=== PATIENT | female | born 1970 | race Caucasian/White ===

== ENCOUNTER → 2017-05-03 | Outpatient (CLI) | payer BC ==
--- NOTE | 2017-05-04 08:17 | US ---
EXAMINATION TYPE: US pelvis complete transvag DATE OF EXAM: 05/03/2017 COMPARISON: US 2016 CLINICAL HISTORY: R10.2 PELVIC PAIN. Abdomen and pelvic pain x couple weeks, 4, para 2, ectop ic 2, uterine ablation 2009, history of tubal ligation and reversal TECHNIQUE: . Transabdominal sonographic images of the pelvis were acquired. Transvaginal sonographi c images were medically necessary to better assess the following anatomy: ovaries Date of LMP: 2009 EXAM MEASUREMENTS: Uterus: 10.1 x 4.6 x 5.0 cm Endometrial Stripe: 0.4 cm Right Ovary: 2.7 x 1.6 x 1.6 cm Left Ovary: 2.6 x 1.9 x 1.6 cm 1. Uterus: anteverted, heterogeneous with 4.0 x 2.5 x 3.6cm hypoechoic lesion right mid uterus, prob able fibroid, nabothian cyst 2. Endometrium: wnl 3. Right Ovary: wnl 4. Left Ovary: wnl 5. Bilateral Adnexa: wnl 6. Posterior cul-de-sac: wnl IMPRESSION: Fibroid uterus
== END | disposition home or self-care (01) ==
LOC: RADUSWWP 15:25
PROVIDERS: ATTEND Family Medicine
DX: D25.9 Leiomyoma of uterus, unspecified (principal)
CPT/HCPCS: 76830; 76856

== ENCOUNTER → 2018-04-29 | Outpatient (CLI) | payer BC ==
--- NOTE | 2018-04-30 04:13 | CT ---
EXAMINATION TYPE: CT abdomen pelvis w con DATE OF EXAM: 04/29/2018 COMPARISON: Ultrasound 05/03/2017 HISTORY: 48-year-old female abdominal and pelvic pain. GENERALIZED ABDOMINAL PAIN TECHNIQUE: Contiguous axial scanning of the abdomen and pelvis following administration of 100 ml Iso claudia 300 IV contrast. Delayed images through the kidneys and coronal/sagittal reconstructions perform ed. CT DLP: 1544.3 mGycm Automated exposure control for dose reduction was used. FINDINGS: Heart normal size without pericardial effusion. Lung bases clear without pleural effusion. Liver mildly enlarged at 18.3 cm. No focal liver lesion. No biliary ductal dilatation. Portal venous system is patent. Gallbladder, adrenal glands, left kidney, spleen, and pancreas appear within normal limits. Punctate 3 mm nonobstructive right renal calculus. There is some fold thickening of the distal duodenum and proximal jejunum, refer to coronal image 33 and axial image 29. No dilated small bowel, free fluid, or free air. No mesenteric or retroperitoneal lymphadenopathy. Normal appendix. Oral contrast progressed to the lower descending colon. No pericolonic inflammatory change. No signif icant stool burden. Bladder is urine distended. Phleboliths in the left side of the pelvis. Uterus and both ovaries are visualized. There is a 4.6 cm oval fibroid from the posterior right uterine fundus which is primarily subserosal. Just adjacent, there is an additional partially intramural and partially subserosal fibroid measurin g 2.4 cm along the mid posterior uterine fundus. No abnormal fluid collection in the pelvis or pelvic lymphadenopathy. Bones: Mild degenerative changes at the hips. No osseous destructive process. IMPRESSION: 1. SOME FOLD THICKENING ALONG THE DISTAL DUODENUM AND PROXIMAL JEJUNUM COULD REPRESENT A NONSPECIFIC MILD REGIONAL ENTERITIS. CLINICALLY CORRELATION. 2. FIBROID UTERUS WITH A DOMINANT 4.6 CM FOCAL FIBROID RIGHT POSTERIOR UTERINE FUNDUS, PRIMARILY SUBS EROSAL (VERSUS 4.0 CM ON 05/03/2017 ULTRASOUND). FEMALE PELVIC MRI CAN BE PERFORMED IF FIBROID MAPPING IS DESIRED. 3. PUNCTATE 3 MM NONOBSTRUCTIVE RIGHT RENAL CALCULUS. 4. MILD HEPATOMEGALY (18.3 CM).
== END ==
LOC: RADCTMAIN 15:29
PROVIDERS: ATTEND Family Medicine
DX: K59.9 Functional intestinal disorder, unspecified (principal); N20.0 Calculus of kidney; D25.9 Leiomyoma of uterus, unspecified; R16.0 Hepatomegaly, not elsewhere classified
CPT/HCPCS: 74177; Q9967

== ENCOUNTER → 2019-01-25 | Outpatient (CLI) | payer BC ==
--- NOTE | 2019-01-27 09:58 | MM ---
Reason for exam: screening (asymptomatic). Last mammogram was performed 3 years and 4 months ago. History: Family history of breast cancer in grandmother. Took hormonal contraceptives for 8 years. Physical Findings: A clinical breast exam by your physician is recommended on an annual basis and results should be correlated with mammographic findings. MG 3D Screening Mammo W/Cad Bilateral CC and MLO view(s) were taken. Prior study comparison: September 28, 2015, bilateral MG screening mammo w CAD. November 06, 2013, bilateral MG screening mammo w CAD. The breast tissue is heterogeneously dense. This may lower the sensitivity of mammography. There is chronic nodularity bilaterally. There is no dominant lesion. No significant changes when compared with prior studies. ASSESSMENT: Benign, BI-RAD 2 RECOMMENDATION: Routine screening mammogram of both breasts in 1 year.
== END | disposition home or self-care (01) ==
LOC: RADMAMWWP 10:00
PROVIDERS: ATTEND Family Medicine
DX: Z12.39 Encounter for other screening for malignant neoplasm of breast (principal)
CPT/HCPCS: 77063; 77067

== ENCOUNTER 2019-10-09 19:50 | Emergency (ER) | payer BC ==
[2019-10-09 19:55] VITALS: BP 155/90; PULSE 50; RESP 20; TEMP 99
[2019-10-09] MEDS ORDERED: KETOROLAC 15 MG/ML 1 ML VIAL IM STA (20:04)
[2019-10-09] MEDS ORDERED: DIPH,PERTUS(ACELL)TETVAC-LF 0.5 ML VIAL IM ONE (20:04)
[2019-10-09] MEDS ORDERED: ACET/COD 300 MG/30 MG STARTER PACK 6 TAB BTL PO STA (20:04)
[2019-10-09] MEDS ORDERED: BACITRACIN OINT 1 EACH PACKET TOPICAL ONE (20:05)
[2019-10-09] MEDS ORDERED: LIDOCAINE 1% INJ 10MG/ML (20 ML MDV) SQ ONE (20:05)
--- NOTE | 2019-10-09 20:16 | ED ---
Animal Bite HPI - General Chief Complaint: Animal Bite Stated Complaint: Animal Bite Time Seen by Provider: 10/09/19 19:56 Source: patient Mode of arrival: ambulatory Limitations: no limitations - History of Present Illness Initial Comments: 49-year-old female patient presents to the emergency department today for evaluation of dog bite. Patient states that she was playing with puppy's when her older male dog became upset and attacked her. She states that she sustained multiple injuries to the bilateral hands. She is reporting hand pain. Denies n umbness or tingling. Denies any other injuries. She is unsure when her last tetanus vaccine was given. States the dog is up-to-date on his immunizations including rabies. She does admit to drinking alcohol today. Patient denies any headache, neck pain, back pain, chest pain, shortness of breath, dizziness, weakness, abdominal pain, nausea, vomiting, or difficulties with bowel movements or urination. - Related Data Home Medications Medication Instructions Recorded Confirmed Hydrocodone/Acetaminophen [Vicodin 1 each PO Q6HR PRN 02/24/14 02/24/14 5-300 mg Tablet] Previous Rx's Medication Instructions Recorded Acetaminophen-Codeine 300-30mg 1 tab PO Q4H PRN #20 tablet 02/24/14 [Tylenol w/codeine #3] Penicillin V Potassium [Pen Vee K] 500 mg PO TID #40 tab 02/24/14 Amoxic-Pot Clav 875-125Mg 1 tab PO Q12HR #14 tablet 10/09/19 [Augmentin 875-125] Allergies Allergy/AdvReac Type Severity Reaction Status Date / Time No Known Allergies Allergy Verified 10/09/19 19:55 Review of Systems ROS Statement: Those systems with pertinent positive or pertinent negative responses have been documented in the HPI. ROS Other: All systems not noted in ROS Statement are negative. Past Medical History Past Medical History: No Reported History History of Any Multi-Drug Resistant Organisms: None Reported Past Surgical History: Tubal Ligation Past Psychological History: Anxiety, Depression Smoking Status: Former smoker Past Alcohol Use History: Rare Past Drug Use History: Marijuana General Exam Limitations: no limitations General appearance: alert, in no apparent distress, other (This is a well- developed, well-nourished adult female patient in no acute distress. Vital signs upon presentation are temperature 99.0F, pulse 50, respirations 20, blood pressure 155/90, pulse ox 98% on room air.) Respiratory exam: Present: normal lung sounds bilaterally. Absent: respiratory distress, wheezes, rales, rhonchi, stridor Cardiovascular Exam: Present: regular rate, normal rhythm, normal heart sounds. Absent: systolic murmur, diastolic murmur, rubs, gallop, clicks Extremities exam: Present: full ROM, normal capillary refill, other (There are 2 punctures and a small superficial abrasion over the dorsal aspect of the right wrist. 2 punctures over the dorsal right hand. There is a 2 cm laceration noted to the webbing between the middle and ring fingers on the right hand. There is a 3 cm laceration at the base of the left thumb. 3 cm laceration noted over the right MCP joint dorsally. 2 cm laceration over the palmar aspect of the left thumb over the proximal phalanx. There is one puncture noted over the dorsal left hand. Skin is otherwise pink, warm, dry. Cap refills less than 3 seconds. Radial pulses 2+ and equal bilaterally.). Absent: normal inspection, tenderness, pedal edema, joint swelling, calf tenderness Neurological exam: Present: alert, oriented X3, CN II-XII intact Psychiatric exam: Present: normal affect, normal mood Skin exam: Present: warm, dry, intact, normal color. Absent: rash Course Vital Signs 10/09/19 19:51 Temperature 99 F Pulse Rate 50 L Respiratory 20 Rate Blood Pressure 155/90 O2 Sat by Pulse 98 Oximetry Procedures - Laceration Laceration #1 Consent Obtained: verbal consent Indication: laceration (Dog bite) Site: hand (base of left thumb near wrist) Size (cm): 3 Description: linear Depth: simple, single layer Anesthetic Used: lidocaine 1% Anesthesia Technique: local infiltration Amount (mls): 3 Pre-repair: irrigated extensively Type of Sutures: nylon Size of Sutures: 4-0 Number of Sutures: 2 (Loosely approximated) Technique: simple, interrupted Patient Tolerated Procedure: well, no complications Laceration #2 Consent Obtained: verbal consent Indication: laceration Site: hand Size (cm): 3 Description: linear Depth: simple, single layer Anesthetic Used: lidocaine 1% Anesthesia Technique: local infiltration Amount (mls): 3 Pre-repair: irrigated extensively Type of Sutures: nylon Size of Sutures: 5-0 Number of Sutures: 1 (loosely approximated) Technique: simple, interrupted Patient Tolerated Procedure: well, no complications Laceration #3 Consent Obtained: verbal consent Indication: laceration Site: hand Size (cm): 2 Description: linear Depth: simple, single layer Anesthetic Used: lidocaine 1% Anesthesia Technique: local infiltration Amount (mls): 3 Pre-repair: irrigated extensively Type of Sutures: nylon Size of Sutures: 5-0 Number of Sutures: 2 (loosely approximated) Technique: simple, interrupted Patient Tolerated Procedure: well, no complications Medical Decision Making - Medical Decision Making 49-year-old female patient presents to the emergency department today for evaluation of dog bites to the bilateral hand. Physical examination revealed multiple lacerations and puncture wounds to the hand as documented in the physical exam. Wounds were cleansed and irrigated. Loose approximation was made of 3 larger lacerations. Patient was started on Augmentin. Given medication for pain control. She is instructed regarding wound care and signs or symptoms of infection. She is instructed to follow-up with her primary care physician for recheck in 1-2 days. She is instructed to return in 7 days to have the stitches removed. Return parameters were discussed in detail. She verbalizes understanding and agrees with this plan. - Radiology Data Radiology results: report reviewed, image reviewed X-rays of the bilateral hands were obtained. Report was reviewed in its entirety. Impression by Dr. Cherry Nye shows bilateral soft tissue findings as discussed. There are no foreign bodies or evidence for fracture. Disposition Clinical Impression: Dog bite of left hand, Dog bite of right hand Disposition: HOME SELF-CARE Condition: Good Instructions (If sedation given, give patient instructions): Animal Bite (ED), Care For Your Stitches (ED), Laceration (ED) Additional Instructions: Keep wounds clean and dry. Cleanse twice daily with warm water and antibacterial soap. Avoid submerging hands and to water. Monitor for signs or symptoms of infection including but not limited to redness, swelling, drainage o f pus, fever, or chills. Return in 7 days to have the stitches removed. Follow-up with your primary care physician for recheck in 1-2 days. Return to the emergency department immediately for any new, worsening, or concerning symptoms. Prescriptions: Amoxic-Pot Clav 875-125Mg [Augmentin 875-125] 1 tab PO Q12HR #14 tablet Is patient prescribed a controlled substance at d/c from ED?: No Referrals: Cj Vegas MD [Primary Care Provider] - 1-2 days Time of Disposition: 21:34
--- NOTE | 2019-10-09 21:12 | XR ---
PROCEDURE: XR hand complete bilateral - 6 total views DATE AND TIME: 10/09/2019 8:26 PM CLINICAL INDICATION: Puncture wound to left hand / abrasion to right TECHNIQUE: Department protocol COMPARISON: None DESCRIPTION: LEFT HAND FINDINGS: There appears to be thenar soft tissue swelling and there are linear tracts of ga s attenuation within the soft tissues medial and lateral to the thumb and extending down toward the w rist. No radiopaque foreign bodies. There is no fracture or malalignment. First HALFWAY degenerative joint changes are appreciated. RIGHT HAND FINDINGS: Appears to be thenar soft tissue swelling. No radiopaque foreign bodies. There is no fracture or malalignment. First HALFWAY degenerative joint changes are appreciated. IMPRESSION: Bilateral soft tissue findings as discussed.
[2019-10-09] MEDS ORDERED: AMOXIC-POT CLAV 875MG STARTER PACK 2 TAB BTL PO STA (21:31)
== END 2019-10-09 21:45 | disposition home or self-care (01) ==
LOC: EC 19:50
DX: S61.412A Laceration without foreign body of left hand, initial encounter (principal); S61.411A Laceration without foreign body of right hand, initial encounter; Z87.891 Personal history of nicotine dependence; W54.0XXA Bitten by dog, initial encounter
CPT/HCPCS: 73130; 90715; 99283; 12004; 96372; 90471; J2001; J1885

== ENCOUNTER → 2020-05-18 | Outpatient (CLI) | payer BC | END | disposition home or self-care (01) | LOC: LABWHC1 16:52 | PROVIDERS: ATTEND Family Medicine | DX: Z03.89 Encounter for observation for other suspected diseases and conditions ruled out (principal) | CPT/HCPCS: U0003; C9803 ==

== ENCOUNTER 2020-11-29 07:10 | Day surgery (SDC) | payer BC ==
[2020-11-25 10:49] VITALS: BMI 37.5
[~2020-11-29 07:10] MED LIST: DEXAMETHASONE SOD PHOSPHATE 4 MG/ML 1 ML VIAL IV ONE; HYDROmorphone 0.5 MG/0.5 ML SYRINGE IVP PRN; LACTATED RINGERS 1,000 ML IV SCH; LIDOCAINE 1% (10MG/ML) FOR IV START INTRADERMA PRN; MIDAZOLAM 2 MG/2 ML VIAL IV PRN; ONDANSETRON 4 MG/2 ML VIAL IVP ONE
[2020-11-29 07:30] VITALS: TEMP 97.3
[2020-11-29] MEDS ORDERED: LACTATED RINGERS 1,000 ML IV ONE (07:30)
--- NOTE | 2020-11-29 07:39 | P.GSHP ---
History of Present Illness H&P Date: 11/29/20 CHIEF COMPLAINT: Colon screen HISTORY OF PRESENT ILLNESS: The patient is a 50-year-old female who presents for colon screen. Lower endoscopy was offered for further evaluation and management. PAST MEDICAL HISTORY: Please see list. PAST SURGICAL HISTORY: Please see list. MEDICATIONS: Please see list. ALLERGIES: Please see list. SOCIAL HISTORY: No illicit drug use FAMILY HISTORY: No reports of Crohn disease or ulcerative colitis. REVIEW OF ORGAN SYSTEMS: CONSTITUTIONAL: No reports of fevers or chills. PHYSICAL EXAM: VITAL SIGNS: Stable GENERAL: Well-developed pleasant in no acute distress. HEENT: No scleral icterus. Extraocular movements grossly intact. Moist buccal mucosa. NECK: Supple without lymphadenopathy. CHEST: Unlabored respirations. Equal bilateral excursions. CARDIOVASCULAR: Regular rate and rhythm. Distal 2+ pulses. ABDOMEN: Soft, nontender, nondistended. MUSCULOSKELETAL: No clubbing, cyanosis, or edema. ASSESSMENT: 1. Colon screen. PLAN: 1. Recommend proceeding with a lower endoscopy Past Medical History Past Medical History: No Reported History History of Any Multi-Drug Resistant Organisms: None Reported Past Surgical History: Tubal Ligation, Uterine Ablation Additional Past Surgical History / Comment(s): TUBAL REVERSAL. TUBAL SURGERY Past Anesthesia/Blood Transfusion Reactions: No Reported Reaction Smoking Status: Former smoker - Past Family History Mother Family Medical History: Cancer Father Family Medical History: Cancer Medications and Allergies Home Medications Medication Instructions Recorded Confirmed Type No Known Home Medications 11/25/20 11/25/20 History Allergies Allergy/AdvReac Type Severity Reaction Status Date / Time No Known Allergies Allergy Verified 11/25/20 10:40 Surgical - Exam Vital Signs Temp Pulse Resp BP Pulse Ox 97.3 F L 77 18 142/77 96 11/29/20 07:29 11/29/20 07:29 11/29/20 07:29 11/29/20 07:29 11/29/20 07:29
[2020-11-29] MEDS ORDERED: PROPOFOL 10 MG/ML 20 ML VIAL IV ONE (08:03)
--- NOTE | 2020-11-29 08:33 | P.PCN ---
Date of Procedure: 11/29/20 Description of Procedure: PREOPERATIVE DIAGNOSIS: Colonoscopy screening POSTOPERATIVE DIAGNOSIS: Tubular adenoma ascending colon Tubular adenoma descending colon Tubular adenoma hepatic flexure Rectal adenoma Internal hemorrhoids, grade 2 Pandiverticulosis Sigmoid diverticulosis, moderate OPERATION: Colonoscopy to the ileocecal valve and appendiceal orifice, cecum Colonoscopy with hot snare polypectomy SURGEON: Cheryl Trejo MD. ANESTHESIA: MAC. INDICATIONS: The patient is an 50-year-old male who presents for her first colonoscopy screening. Benefits and risks were described and informed consent was obtained. DESCRIPTION OF PROCEDURE: The patient had undergone Sutab prep. The patient had been brought into the operating room and laid in the left lateral decubitus position. After adequate intravenous sedation, the rectum was examined with 2% lidocaine jelly. External hemorrhoids were encountered. The rectal tone was within normal limits. No lesions were palpated in the rectal vault. An Olympus colonoscope was advanced until the cecum, ileocecal valve and appendiceal orifice were clearly viewed. The prep was good. Sigmoid diverticulosis was encountered with pandiverticulosis. Colonic polyps were found and removed. No evidence of focal colitis was found. Retroflexion of the scope demonstrated grade 2 internal hemorrhoids without active bleeding or inflammation. The colon was desufflated. The patient had tolerated the procedure well. Withdrawal time was over 6 minutes. FINDINGS: Aronchick preparation quality scale 2 (1-5) Internal hemorrhoids, grade 2 External hemorrhoids, grade 2 No arteriovenous malformations. Sigmoid diverticulosis with pandiverticulosis Removal of 4 polyps: - Snare polypectomy ascending colon, 6 mm tubulovillous adenoma polyp. - Snare polypectomy mid transverse colon, 8 mm flat villous adenoma polyp. - Snare polypectomy descending colon, 8 mm flat villous adenoma polyp. - Snare polypectomy rectum, 5 mm flat villous adenoma polyp. No focal colitis. RECOMMENDATIONS: Given severity of tubular adenomas, recommend repeat colonoscopy 1 year, 2021 Plan - Discharge Summary Discharge Rx Participant: No New Discharge Prescriptions: Continue No Known Home Medications Discharge Medication List No Known Home Medications 11/25/20 [History] Follow up Appointment(s)/Referral(s): Cheryl Trejo MD [STAFF PHYSICIAN] - 12/07/20 Patient Instructions/Handouts: Colorectal Polyps (DC), *Surgery [facility] - (Anesthesia) Endoscopy Discharge Instructions Activity/Diet/Wound Care/Special Instructions: Repeat colonoscopy one year, 2021 Discharge Disposition: HOME SELF-CARE
[2020-11-29 08:54] VITALS: BP 123/77; PULSE 63; RESP 16
== END 2020-11-29 09:16 | disposition home or self-care (01) ==
LOC: ORWHC2ENDO 07:10
PROVIDERS: ATTEND Surgery Plastic and Reconstructive Surgery
DX: Z12.11 Encounter for screening for malignant neoplasm of colon (principal); D12.2 Benign neoplasm of ascending colon; D12.3 Benign neoplasm of transverse colon; D12.4 Benign neoplasm of descending colon; K57.30 Diverticulosis of large intestine without perforation or abscess without bleeding; K64.8 Other hemorrhoids; F12.90 Cannabis use, unspecified, uncomplicated; Z87.891 Personal history of nicotine dependence
CPT/HCPCS: 45385; 81025; 88305; J2704

== ENCOUNTER → 2021-02-15 | Outpatient (CLI) | payer BC ==
--- NOTE | 2021-02-17 09:49 | MM ---
Reason for exam: screening (asymptomatic). Last mammogram was performed 2 years and 1 month ago. History: Family history of breast cancer in grandmother. Took hormonal contraceptives for 8 years. Physical Findings: A clinical breast exam by your physician is recommended on an annual basis and results should be correlated with mammographic findings. MG 3D Screening Mammo W/Cad Bilateral CC and MLO view(s) were taken. Prior study comparison: January 25, 2019, bilateral MG 3d screening mammo w/cad. September 28, 2015, bilateral MG screening mammo w CAD. There are scattered fibroglandular densities. There is chronic nodularity in the left breast. No significant changes when compared with prior studies. ASSESSMENT: Benign, BI-RAD 2 RECOMMENDATION: Routine screening mammogram of both breasts in 1 year.
== END | disposition home or self-care (01) ==
LOC: RADMAMWWP 13:34
PROVIDERS: ATTEND Family Medicine
DX: Z12.31 Encounter for screening mammogram for malignant neoplasm of breast (principal); Z80.3 Family history of malignant neoplasm of breast
CPT/HCPCS: 77063; 77067